=== PATIENT | female | born 1960 | race Caucasian/White ===

== ENCOUNTER → 2023-05-16 14:44 | Outpatient (REF) | payer OTHER, SELFPAY | LOC: WDC 14:44 | PROVIDERS: ATTENDING PHYSICIAN Family Medicine | DX: Z12.31 Encounter for screening mammogram for malignant neoplasm of breast (principal) | CPT/HCPCS: 77063; 77067 ==

== ENCOUNTER 2023-05-29 13:38 | Outpatient (RCR) | payer OTHER, SELFPAY ==
[2023-05-29] MEDS: ZOMETA 100 MG IV (14:25)
[2023-05-29 14:30] VITALS: BP 172/82
[2023-05-29 15:00] VITALS: BP 169/88
== END 2023-06-01 10:41 | disposition home or self-care (01) ==
LOC: OID 13:38
PROVIDERS: ATTENDING PHYSICIAN Family Medicine
DX: M81.0 Age-related osteoporosis without current pathological fracture (principal)
CPT/HCPCS: 96365; J3489

== ENCOUNTER → 2024-01-14 15:28 | Outpatient (REF) | payer OTHER, SELFPAY | LOC: HWRAD 15:28 | PROVIDERS: ATTENDING PHYSICIAN Nurse Practitioner Adult Health; FAMILY PHYSICIAN Family Medicine | DX: R05.3 Chronic cough (principal) | CPT/HCPCS: 71250 ==

== ENCOUNTER → 2024-02-22 11:32 | Outpatient (REF) | payer OTHER, SELFPAY | LOC: RAD 11:32 | PROVIDERS: ATTENDING PHYSICIAN Family Medicine | DX: M81.0 Age-related osteoporosis without current pathological fracture (principal) | CPT/HCPCS: 77080 ==

== ENCOUNTER → 2024-05-27 16:17 | Outpatient (REF) | payer OTHER, SELFPAY | LOC: WDC 16:17 | PROVIDERS: ATTENDING PHYSICIAN Family Medicine | DX: Z12.31 Encounter for screening mammogram for malignant neoplasm of breast (principal) | CPT/HCPCS: 77063; 77067 ==

== ENCOUNTER → 2024-06-04 10:06 | Outpatient (REF) | payer OTHER, SELFPAY | LOC: RAD 10:06 | PROVIDERS: ATTENDING PHYSICIAN Internal Medicine Critical Care Medicine; FAMILY PHYSICIAN Family Medicine | DX: J84.9 Interstitial pulmonary disease, unspecified (principal) | CPT/HCPCS: 71250 ==

== ENCOUNTER → 2024-11-15 08:49 | Outpatient (REF) | payer OTHER, SELFPAY | LOC: HWRAD 08:49 | PROVIDERS: ATTENDING PHYSICIAN Internal Medicine Critical Care Medicine; FAMILY PHYSICIAN Family Medicine | DX: J84.9 Interstitial pulmonary disease, unspecified (principal); R91.8 Other nonspecific abnormal finding of lung field | CPT/HCPCS: 71250 ==

== ENCOUNTER → 2024-11-21 06:23 | Outpatient (REF) | payer OTHER, SELFPAY ==
[2024-11-21 07:10] LABS: Hematocrit 38.7 % (37.0-47.0); Hemoglobin 13.8 g/dL (12.0-16.0); Mean Corp Hgb Conc. 35.7 g/dL (33.0-37.0); Mean Corpuscular Volume 93.0 fL (81.0-99.0); Nucleated Red Blood Cells % 0 %; Platelet Count 258 10^3/uL (130-400); Red Cell Dist. Width 11.8 % (11.5-14.5); Reticulocyte Count 2.0 % (0.4-2.8)
[2024-11-21 07:18] LABS: PT 13.1 Sec (11.4-14.6)
[2024-11-21 07:20] LABS: APTT 25.4 Sec (23.4-35.0)
[2024-11-21 07:31] LABS: Blood Urea Nitrogen 15 mg/dl (7-17); Calcium 9.9 mg/dl (8.4-10.2); Carbon Dioxide 28 mmol/L (22-30); Chloride 102 mmol/L (98-107); Glucose 84 mg/dl (70-99); Potassium 4.0 mmol/L (3.5-5.1); Sodium 136 mmol/L (135-145); eGFR > 60.00
[2024-11-21 10:58] LABS: INR 0.96
== END ==
LOC: RCS 06:23
PROVIDERS: ATTENDING PHYSICIAN Internal Medicine Critical Care Medicine; FAMILY PHYSICIAN Family Medicine
DX: Z01.818 Encounter for other preprocedural examination (principal)
CPT/HCPCS: 36415; 80048; 85025; 85045; 85610; 85730; 93005

== ENCOUNTER 2024-11-28 07:01 | Day surgery (SDC) | payer OTHER, SELFPAY ==
[2024-11-28] VITALS (12 sets, daily range): BP systolic 132–222; BP diastolic 75–110; BMI 25.3
[2024-11-28] MEDS: NSS 500 IV (07:02)
[2024-11-28 14:59] LABS: Brochalveolar Lavage Color Red; Brochalveolar Lavage Volume 10 ml
[2024-11-28 15:01] LABS: Brochalveolar Lavage Character Turbid (Clear); Brochalveolar Lavage WBC 53900 cells/ml
[2024-11-28 17:08] LABS: BAL Lining Cells 29.5 %
== END 2024-11-28 11:43 | disposition home or self-care (01) ==
LOC: SDS 07:01
PROVIDERS: ATTENDING PHYSICIAN Internal Medicine Critical Care Medicine
DX: R91.8 Other nonspecific abnormal finding of lung field (principal); S27.321A Contusion of lung, unilateral, initial encounter; X58.XXXA Exposure to other specified factors, initial encounter; R91.1 Solitary pulmonary nodule; R05.3 Chronic cough
CPT/HCPCS: 31629; 31652; 31628; 31623; 31645; 31624; 71045; 76000; 87070; 87102; 87116; 87205; 88112; 88173; 88305; 88333; 89051; C1887

== ENCOUNTER 2024-12-16 21:35 | Inpatient (IN) | payer OTHER, SELFPAY ==
[2024-12-16 12:47] VITALS: BP 153/84
[2024-12-16 14:27] VITALS: BMI 25.8
[2024-12-16] MEDS: TORADOL 15 MG IV ×2 (14:59→21:08)
[2024-12-16] MEDS: NSS 1000 IV ×3 (15:00→23:30)
[2024-12-16] MEDS: ZOFRAN 4 MG IV (15:00)
[2024-12-16 15:23] LABS: Hematocrit 40.2 % (37.0-47.0); Hemoglobin 13.9 g/dL (12.0-16.0); Mean Corp Hgb Conc. 34.6 g/dL (33.0-37.0); Mean Corpuscular Volume 95.0 fL (81.0-99.0); Nucleated Red Blood Cells % 0 %; Platelet Count 277 10^3/uL (130-400); Red Cell Dist. Width 11.8 % (11.5-14.5)
[2024-12-16 15:37] LABS: ALT (SGPT) 18 U/L (0-35); AST (SGOT) 21 U/L (14-36); Albumin 4.1 g/dl (3.5-5.0); Alkaline Phosphatase 57 U/L (38-126); Blood Urea Nitrogen 19 mg/dl (7-17); Calcium 8.9 mg/dl (8.4-10.2); Carbon Dioxide 27 mmol/L (22-30); Chloride 99 mmol/L (98-107); Estimated Creatinine Clearance 69 ml/min; Glucose 133 mg/dl (70-99); Lipase 67 U/L (23-300); Potassium 4.0 mmol/L (3.5-5.1); Sodium 129 mmol/L (135-145); Total Protein 6.5 g/dl (6.3-8.2); eGFR > 60.00
[2024-12-16 19:37] VITALS: BP 139/80
--- NOTE | 2024-12-16 20:05 | ED.GENMED ---
History of Present Illness
General
Chief Complaint: Abdominal Pain
Source: patient
Exam Limitations: none
Time Seen by Provider: 12/16/24 14:11
History of Present Illness
History of Present Illness:
Patient cut her finger on a can lid.
Past History
Past History
ED Past Medical History: None and Other
ED Past Surgical History: Other
Social History
Alcohol: Occasional
Drug: None
Personal:
Living: with family
Employment: Employed
Family History
Family History: Other
Course
Orders/Labs/Results
Orders:
Orders
12/16/24 14:43
STOOL [C difficile Antigen & Toxins] Urgent
SHAQ Source: Feces/Stool
Specimen Description:
Stool Culture Urgent
SHAQ Source: Feces/Stool
Specimen Description:
0.9% Sodium Chloride 1000 ml [Nss] 1,000 ml IV BOLUS
12/16/24 14:44
CT Abd/Pel (IV only)-DH only Urgent
Comment:
Reason For Exam: Lower abdominal pain
Ketorolac [Toradol] 15 mg IV NOW STA
Ondansetron Injectable [Zofran] 4 mg IV NOW STA
12/16/24 15:03
Complete Blood Count/With Diff Urgent
Comprehensive Metabolic Panel Urgent
Lipase Urgent
12/16/24 20:03
Tetanus/Diphth/Acelpertussis [Adacel] 0.5 ml IM .ONCE ONE
12/16/24 20:10
0.9% Sodium Chloride 1000 ml [Nss] 1,000 ml IV BOLUS
12/16/24 20:14
Piperacillin/Tazo 3.375 Gram [Zosyn] 3.375 gram in 50 ml IV NOW
12/16/24 20:17
HYDROmorphone [Dilaudid] 0.5 mg IV NOW STA
Abnormal Lab Results
12/16/24
15:03
WBC 20.2 H 10^3/uL
(4.8-10.8)
MCH 32.9 H pg
(27.0-31.0)
Abs Immat Gran (auto) 0.1 H 10^3/uL
(0-0.05)
Absolute Neuts (auto) 18.7 H 10^3/uL
(1.4-6.5)
Absolute Lymphs (auto) 0.6 L 10^3/uL
(1.2-3.4)
Absolute Monos (auto) 0.8 H 10^3/uL
(0.1-0.6)
Immature Gran % 0.6 H %
(0-0.5)
Neutrophils % 92.5 H %
(42.2-75.2)
Lymphocytes % 2.8 L %
(20.5-51.1)
Sodium 129 L mmol/L
(135-145)
BUN 19 H mg/dl
(7-17)
Glucose 133 H mg/dl
(70-99)
12/16/24 15:03
12/16/24 15:03
Vital Signs
Initial and Last Documented VS:
Initial Vital Signs
Temp Pulse Resp BP Pulse Ox
98.7 F 95 16 153/84 98
12/16/24 12:47 12/16/24 12:47 12/16/24 12:47 12/16/24 12:47 12/16/24 12:47
Last Documented Vital Signs
Temp Pulse Resp BP Pulse Ox
98.5 F 80 20 139/80 98
12/16/24 19:37 12/16/24 19:37 12/16/24 19:37 12/16/24 19:37 12/16/24 20:06
*Pulse Oximetry
SaO2: 98
Oxygen Mode of Delivery: Room air
Patient hypoxic: no
Update Note
Update Note:
Patient referred to surgery. She will be admitted kept n.p.o. antibiotics and go to the OR in the morning
ED Attending Note
-
Portions of this chart may have been created with voice recognition software.� Occasional wrong word or��sound alike� substitutions may have occurred due to the inherent limitations of voice recognition software.
Discharge Plan
Departure
Patient Disposition: Admit
Date of Disposition: 12/16/24
Time of Disposition: 18:02
Presentation/result/management discussed w/ accepting MD/DO: Surgery
Discharge Problem:
Acute appendicitis
Prescriptions:
No Action
prednisone 10 mg Tablet
10 mg PO DAILY
fluticasone furoate-vilanterol [Breo Ellipta] 200-25 mcg/dose Blister With Device
1 inh INHALATION DAILY
Prolia 60 mg/mL Syringe
60 mg SC [id number]
Referrals:
Vita Latham MD [Family Provider, Family Practice]
Interventions
Interventions:
*Risk Screen - Suicide Last Done: 12/16/24 12:47
*General Assessment Last Done: 12/16/24 14:29
*Neglect/Abuse Screening Last Done: 12/16/24 12:47
*ED- Fall Risk Assessment Last Done: 12/16/24 14:28
*ED COVID-19 Vaccine History Last Done: 12/16/24 14:28
*ED Influenza Vaccine History Last Done: 12/16/24 14:28
OV-Meckds-Edvteivduy Assessment Last Done: 12/16/24 19:44
Discharge Date and Time
Print Language: LAO
[2024-12-16] MEDS: DILAUDID 0.5 MG IV (20:20)
[2024-12-16] MEDS: ZOSYN 50 IV (20:20)
--- NOTE | 2024-12-16 21:11 | HPS.HSE ---
Addendum entered and electronically signed by Colton Chong MD 12/17/24 03:29:
I saw and examined the patient independently.
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
Comment: This is a 64-year-old female with no significant past medical history who presents 1 day of right lower quadrant abdominal pain with exam, imaging and blood work all consistent acute appendicitis.
Will plan for laparoscopic appendectomy in the OR today.
N.p.o., IV fluids, IV antibiotics.
Risks/Benefits/Alternatives, expected postoperative course and possible complications (bleeding, infection, injury to surrounding structures, acute/chronic pain) discussed at length. Patient wishes to proceed with surgery. All questions answered.
Consent obtained.
I spent 75 minutes in total for the care of this patient today including direct patient care and counseling, reviewing labs, imaging, coordination of care, as well as documentation.
Original Note:
Family Physician
-
Family Physician: Vita Latham MD
Chief Complaint
-
'abdomen pain'
History of Present Illness
64 y/o patient with PMH of interstitial lung disease (newly diagnosed), negative lung biopsy, Osteoporosis, presents to ER with the c/o abdomen pain which started 1 AM today. States her pain began as dull discomfort lower abdomen mostly mid lower
abdomen radiating to right and left lower back side, which over the hours became more sharp associated with non-bilious vomiting and diarrhea with dark stool x2. Pain is constant and worsened overtime, unrelieved with Tums,which prompted to ER
visit. Denies fever chills, denies chest pain shortness of breath. Patient visited [place] over the weekend, unsure if she was exposed to anyone sick.
Medical History
Past Medical History
Past Medical History: Reports Other
Additional Past Medical History:
Interstitial Lung Disease, Osteoporosis, colon Polyps
Past Surgical History: Reports Orthopedic (osteotomy right foot ) and Other
Additional Past Surgical History:
Bone marrow donor, D&C
Social History
Tobacco: Non-smoker
Alcohol: Daily (wine )
Drug: None
Living: With Family
Family History
Family History: Not pertinent
Allergies / Home Medications
Allergies reflects when Allergies were last updated in [employer].
Home Medications with original date entered in [employer]
Allergy/Medication List:
Allergies
Allergy/AdvReac Type Severity Reaction Status Date / Time
Sulfa (Sulfonamide Allergy Rash; Verified 12/16/24 12:46
Antibiotics) Burning
Home Medications
fluticasone furoate 200 mcg-vilanterol 25 mcg/dose inhalation powder (Breo Ellipta) 1 inh inhalation DAILY 11/25/24
prednisone 10 mg tablet 10 mg PO DAILY 11/25/24
denosumab 60 mg/mL subcutaneous syringe (Prolia) 60 mg SC [id number] 11/28/24
Review of Systems
-
History Source: Patient
A 12 point ROS was completed and negative except as noted: Yes
Constitutional: Reports No Symptoms
EENT: Reports No Symptoms
Respiratory: Reports No Symptoms
Cardiac: Reports No Symptoms
Abdomen/GI: Reports Abdominal Pain and Diarrhea
: Reports No Symptoms
Musculoskeletal: Reports No Symptoms
Skin: Reports No Symptoms
Neurological: Reports No Symptoms
Endocrine: Reports No Symptoms
Hematologic/Lymphatic: Reports No Symptoms
Psych: Reports No Symptoms
Physical Exam
Vital Signs
Vital Signs
Temp Pulse Resp BP Pulse Ox
98.5 F 80 20 139/80 98
12/16/24 19:37 12/16/24 19:37 12/16/24 19:37 12/16/24 19:37 12/16/24 20:06
Physical Exam
General: Well Developed, Well Nourished and No Apparent Distress
HEENT: NormoCephalic, Moist mucous membranes and Atraumatic
Respiratory: Clear and Non Labored Respirations
Cardiac: S1/S2 and Regular Rhythm
Breast: Deferred by me
GI: Soft, Non Distended, Normal Bowel Sounds and Tender (lower abdomen)
Rectal: Deferred by Provider
Genito-urinary: Deferred by me
Musculoskeletal: No Clubbing, No Cyanosis and No Edema
Skin: Warm and Dry
Neuro: Awake, AO x 3 and Nonfocal/grossly intact
Hematologic/Lymphatic: No Lymphadenopathy
Psych: Calm and Intact Judgment/Insight
Laboratory Results
-
12/16/24 15:03
12/16/24 15:03
Laboratory Results
Total Bilirubin 1.1 mg/dl (0.2-1.3) 12/16/24 15:03
AST 21 U/L (14-36) 12/16/24 15:03
ALT 18 U/L (0-35) 12/16/24 15:03
Alkaline Phosphatase 57 U/L (38-126) 12/16/24 15:03
Lipase 67 U/L (23-300) 12/16/24 15:03
Data Reviewed
-
CT Scan: Report Reviewed by me
Lab Data: Labs Reviewed by me
Impression/Plan
-
64 y/o patient with abdomen pain
# Abdomen pain likely due to Acute Appendicitis
- WBC 20.2
- CT abd/pelvis suspicious of Acute appendicitis
-NPO
- Continue IV Fluids
- Continue IV Zosyn
- Continue Zofran IV
- Continue IV Toradol
- Admit to Med surg
- Dr. Castillo moore
# Osteoporosis
- Prolia Q 6 months
# Interstitial Lung disease
Continue Fluticasone
Prednisone
Full Code
SCD's.
[2024-12-16 22:39] VITALS: BP 130/76
[2024-12-16 23:05] VITALS: BP 141/73; BMI 26.0
[2024-12-17] VITALS (9 sets, daily range): BP systolic 98–151; BP diastolic 58–79
[2024-12-17] MEDS: TORADOL 15 MG IV ×4 (02:04→23:23)
[2024-12-17] MEDS: ZOSYN 50 IV ×3 (02:04→21:26)
--- NOTE | 2024-12-17 03:27 | W.SUR.PREOP ---
Pre-Operative Surgical Note
-
I have examined this patient prior to the performance of the scheduled procedure.
The patient's condition is unchanged from the time of the current History and
Physical and the patient is able to undergo the scheduled procedure.
[2024-12-17 07:29] LABS: Hematocrit 35.5 % (37.0-47.0); Hemoglobin 12.0 g/dL (12.0-16.0); Mean Corp Hgb Conc. 33.8 g/dL (33.0-37.0); Mean Corpuscular Volume 95.2 fL (81.0-99.0); Platelet Count 242 10^3/uL (130-400); Red Cell Dist. Width 11.8 % (11.5-14.5)
[2024-12-17] MEDS: SYMBICORT 160/4.5 MCG INHALER 2 PUFF INH ×2 (07:50→18:29)
[2024-12-17 08:08] LABS: Blood Urea Nitrogen 15 mg/dl (7-17); Calcium 7.7 mg/dl (8.4-10.2); Carbon Dioxide 24 mmol/L (22-30); Chloride 106 mmol/L (98-107); Estimated Creatinine Clearance 69 ml/min; Glucose 87 mg/dl (70-99); Potassium 3.5 mmol/L (3.5-5.1); Sodium 132 mmol/L (135-145); eGFR > 60.00
[2024-12-17] MEDS: ZOSYN IV (08:47)
[2024-12-17] MEDS: DELTASONE 10 MG PO (09:05)
--- NOTE | 2024-12-17 09:32 | W.IMMPOSTOP ---
Surgical Immed Post Op Note
-
Primary Surgeon: Colton Chong MD
Assisting Surgeon: None
Pre-op Diagnosis: Acute appendicitis
Post-op Diagnosis: Same
Procedure Performed: Laparoscopic appendectomy
Anesthesia Type: General
Specimen / Cultures: Pelvic fluid for culture
Estimated Blood Loss: 1 cc
Complications: None
Operative Findings: Three 5 mm port appendectomy. Gangrenous but nonperforated appendicitis. Some murky fluid in the pelvis noted and suctioned out, this was cultured. Base clean, ligated with 0 PDS Endoloop x 2.
POST OP PLAN:
Imaging: None
Labs: Routine AM
Diet: Advance to Regular as tolerated
Analgesia: Tylenol 650mg q6 Elisabeth, Dilaudid 0.5mg q2h PRN
Neuro/vascular checks: Per unit protocol
AC/AP: Hold Therapeutic AC, Ok for DVT PPx
Activity: Ad Mary
Wound/Incisions/Drains: Routine
Abx: Will do 4 days of antibiotics.
Dispo: RNF, anticipate discharge home later today versus tomorrow pending clinical course.
--- NOTE | 2024-12-17 09:33 | OR.RPT ---
Operative Report
Operative Report
Patient Name: Vita Little
: 1960
Date of Operation: 12/17/2024
Preoperative Diagnosis: Acute Appendicitis
Postoperative Diagnosis: Same
Procedure(s):
Laparoscopic Appendectomy
Surgeon(s):
Dr. Chong
Brush Maker Machine(s):
None
Anesthesia: General
Estimated Blood Loss: 1 cc
Urine Output: None
Drains/Lines/Implants: None
Specimens:
1. Appendix
HPI/Surgical Indications:
This is a 64-year-old female who presents with a 1 day history of abdominal pain. Exam, labs and imaging are consistent with acute appendicitis. Risks/Benefits/Alternatives were discussed at length, and the patient agreed to proceed with surgery.
Operative Findings: Three 5 mm port appendectomy. Gangrenous but nonperforated appendicitis. Some murky fluid in the pelvis noted and suctioned out, this was cultured. Base clean, ligated with 0 PDS Endoloop x 2.
Procedure Description:
The patient was placed in the supine position, with the left arm tucked, and general anesthesia was induced. The abdomen was prepared and draped in a sterile fashion so as to expose the entire abdomen. A surgical time out was taken. Abdominal access
was obtained with a left subcostal Veress entry which required a single pass followed by a 5 mm left lower quadrant Optiview entry. After confirming no injury on entrance, two additional 5mm ports were placed in the suprapubic area just off midline
and just below the umbilicus. The patient was placed in Trendelenberg with the right slightly up . The appendix was identified lying in the pelvis and rotated up into the field. The appendix was inflamed and somewhat necrotic but not particularly
suppurative and there was no evidence of perforation. Using a laparoscopic bipolar energy device, the meso appendix was divided. The base of the appendix appeared uninvolved and was ligated/divided using two 0-PDS Endoloops and the energy device.
The appendix was placed in a specimen retrieval bag. There was some murky yellow-brown fluid in the pelvis which was suctioned out and cultured. Hemostasis was confirmed and the ports were removed under visualization. The specimen was passed off
the field via the umbilical port. The umbilical port was closed with a [id number] 0-PDS and the skin for all three ports was closed with interrupted monocryls and covered with dermabond. The patient was awoken from anesthesia in good condition
and transported to the recovery area.
I was the attending physician and performed the procedure with no assistance. I was present for all portions of the case.
Colton Chong MD
--- NOTE | 2024-12-17 11:37 | CM ---
CM following re: discharge planning.
Reviewed pt's chart, met with pt and pt's at bedside.
Pt is a 64 year old female, admitted with primary dx of abdominal pain, s/p POD#0 Laparoscopic appendectomy.
Pt reports she lives with 2SH, 1 step to enter, has supportive daughter. 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
PCP: [facility]
Pharmacy: [facility]
D/C plan: home no needs. to transport.
[2024-12-17] MEDS: NSS 1000 IV (15:20)
[2024-12-17] MEDS: ZOFRAN 4 MG IV (19:45)
[2024-12-17] MEDS: DILAUDID 0.5 MG IV (19:46)
[2024-12-18] MEDS: ZOSYN 50 IV ×2 (04:21→08:01)
[2024-12-18] MEDS: NSS 1000 IV (04:21)
[2024-12-18] MEDS: TORADOL 15 MG IV (07:02)
[2024-12-18] MEDS: SYMBICORT 160/4.5 MCG INHALER 2 PUFF INH (07:25)
[2024-12-18 07:30] VITALS: BP 153/81
[2024-12-18] MEDS: DELTASONE 10 MG PO (08:01)
[2024-12-18 08:44] LABS: Hematocrit 32.0 % (37.0-47.0); Hemoglobin 10.9 g/dL (12.0-16.0); Mean Corp Hgb Conc. 34.1 g/dL (33.0-37.0); Mean Corpuscular Volume 95.5 fL (81.0-99.0); Nucleated Red Blood Cells % 0 %; Platelet Count 202 10^3/uL (130-400); Red Cell Dist. Width 11.8 % (11.5-14.5)
[2024-12-18 09:05] LABS: Blood Urea Nitrogen 17 mg/dl (7-17); Calcium 7.3 mg/dl (8.4-10.2); Carbon Dioxide 24 mmol/L (22-30); Chloride 105 mmol/L (98-107); Estimated Creatinine Clearance 69 ml/min; Glucose 106 mg/dl (70-99); Sodium 131 mmol/L (135-145); eGFR > 60.00
--- NOTE | 2024-12-18 09:09 | W.PN.GS2 ---
Today's Communication / Plan
-
Dispo planning
Assessment / Plan
-
64 yo female presenting with gangrenous appendicitis now POD #1 lap appi
AFVSS
Leukocytosis trending down
Tolerating diet
Plan:
Continue ABX upon discharge, change to PO Augmentin
Continue regular diet as tolerated
Analgesics as needed
OOB/Ambulate
Dispo planning
Subjective Data
-
Date of Service: December 18, 2024
Pt seen and examined at bedside with Dr. Chong. Denies n/v. Tolerating diet. Some abdominal discomfort after eating but no belching and passing flatus. Sore at incisions but manageable.
Objective Data
-
Intake and Output
12/17/24 12/18/24 12/19/24
06:59 06:59 06:59
Intake Total 1000 / 1000 3820 / 3820
Balance 1000 / 1000 3820 / 3820
Intake:
Oral fluids 1070 / 1070
IV fluids (Total) 1000 / 1000 2600 / 2600
Normosol 300 / 300
nss 1000 / 1000
IV piggybacks 150 / 150
Other:
Number of approximated MODERATE 1 2
amounts of urine
Vital Signs
Temp Pulse Resp BP Pulse Ox
97.8 F 62 16 153/81 100
12/18/24 07:30 12/18/24 07:30 12/18/24 07:30 12/18/24 07:30 12/18/24 07:30
Lab Results
12/18/24 08:20
12/18/24 08:20
Calcium 7.3 mg/dl (8.4-10.2) L 12/18/24 08:20
Total Bilirubin 1.1 mg/dl (0.2-1.3) 12/16/24 15:03
AST 21 U/L (14-36) 12/16/24 15:03
ALT 18 U/L (0-35) 12/16/24 15:03
Alkaline Phosphatase 57 U/L (38-126) 12/16/24 15:03
Total Protein 6.5 g/dl (6.3-8.2) 12/16/24 15:03
Albumin 4.1 g/dl (3.5-5.0) 12/16/24 15:03
Physical Exam
-
NAD
ABD soft, expected incisional tenderness, nondistended
Incisions with intact glue. Bruising to umbilical port site.
[2024-12-18 09:11] LABS: Potassium 3.7 mmol/L (3.5-5.1)
--- NOTE | 2024-12-18 09:13 | W.DS.TRANS ---
Addendum entered and electronically signed by CHIO Brown 12/18/24 16:04:
dictated #[id number]
Original Note:
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
-
Discharge Instructions:
Discharge Diagnosis/Procedures Acute gangrenous appendicitis. Laparoscopic
appendectomy
Diet No restrictions
Activity No strenuous activity
Driving Restrictions As prior to admission
Bathing Restrictions OK to Shower
Instructions:
Stand-Alone Forms:
Changes to Home Medications: No
Discharge Medications:
DC Medications w/original date entered in [facility]
fluticasone furoate 200 mcg-vilanterol 25 mcg/dose inhalation powder (Breo Ellipta) 1 inh inhalation DAILY 11/25/24
prednisone 10 mg tablet 10 mg PO DAILY 11/25/24
denosumab 60 mg/mL subcutaneous syringe (Prolia) 60 mg SC [id number] 11/28/24
acetaminophen 325 mg tablet 650 mg (2 x 325 mg) PO Q6HPRN PRN mild pain #14 tabs 12/17/24
amoxicillin 875 mg-potassium clavulanate 125 mg tablet 1 tab PO Q12 antibiotic #8 tabs 12/17/24
ibuprofen 600 mg tablet 600 mg PO Q6H PRN pain #14 tabs 12/17/24
tramadol 50 mg tablet 25 mg (1/2 x 50 mg) PO Q6HPRN PRN severe pain/breakthrough pain #12 tabs 12/17/24
Home Medication Changes
Pending Results: No
[2024-12-18] MEDS: TUMS CHEWABLE TABLET 200 MG PO (09:29)
== END 2024-12-18 10:43 | disposition home or self-care (01) | DRG 398 ==
LOC: 2 SOUTH 21:35
PROVIDERS: Nurse Practitioner Gerontology; Physician Assistant; ADMITTING PHYSICIAN Surgery; EMERGENCY PHYSICIAN Emergency Medicine; FAMILY PHYSICIAN Family Medicine
PROC: 0DTJ4ZZ Resection of Appendix, Percutaneous Endoscopic Approach (ICD-10-PCS; 2024-12-17)
DX: K35.891 Other acute appendicitis without perforation, with gangrene (principal); J84.9 Interstitial pulmonary disease, unspecified; M81.0 Age-related osteoporosis without current pathological fracture
CPT/HCPCS: 74177; 80048; 80053; 83690; 85025; 85027; 87070; 87075; 87205; 88304; 90471; 94640; 96361; 96365; 96366; 96375; 99284; Q9967